=== PATIENT | female | born 1985 | race Caucasian/White ===

== ENCOUNTER 2017-05-07 17:20 | Inpatient (IN) | payer OTHER ==
[~2017-05-07] VITALS: Ht 160 cm; Wt 87.3 kg
[2017-05-07] MEDS ORDERED: LACTATED RINGER'S 1000ML 1,000 ML IV PRN (18:06)
[2017-05-07] MEDS ORDERED: CEFAZOLIN IV 2,000 MG in DEXTROSE 5% 50ML 50 ML IV ONE (18:15)
[2017-05-07 18:40] VITALS: Ht 160 cm; Wt 87.3 kg
[2017-05-07] MEDS: LACTATED RINGER'S 1000ML 1,000 ML IV SCH ×2 (18:42→23:28)
[2017-05-07] MEDS ORDERED: CEFAZOLIN IV 2,000 MG in DEXTROSE 5% 50ML 50 ML IV SCH (18:45)
[2017-05-07] MEDS ORDERED: PRENTAB26 PO (18:48)
[2017-05-07] MEDS ORDERED: PSEU30TA3 PO (18:48)
[2017-05-07] MEDS ORDERED: CEFAZOLIN IV 2,000 MG in SYRINGE 0 ML IV SCH (19:00)
[2017-05-07] MEDS ORDERED: CEFAZOLIN IV 2,000 MG in SYRINGE 0 ML IV ONE (19:00)
[2017-05-07 19:02] LABS: BASO % 0.1 %; BASO ABS # 0.01 K/uL (0-0.2); EOS % 0.5 %; EOS ABS # 0.05 K/uL (0-0.5); HEMATOCRIT 39.2 % (37-47); HEMOGLOBIN 12.9 g/dL (12.0-16.0); IG# 0.03 K/uL (0.00-0.02); LYMPH % 18.3 %; LYMPH ABS # 1.72 K/uL (1.2-3.4); MEAN CELL VOLUME 89.3 fL (80-100); MEAN CORPUSCULAR HEMOGLOBIN 29.4 pg (25-34); MEAN PLATELET VOLUME 10.5 fL (7.4-10.4); MONO % 10.3 %; MONO ABS # 0.97 K/uL (0.11-0.59); NEUT % 70.5 %; NEUT ABS # 6.63 K/uL (1.4-6.5); PLATELET COUNT 249 K/uL (130-400); WHITE BLOOD COUNT 9.41 K/uL (4.8-10.8)
[2017-05-07 19:03] LABS: MEAN CORPUSCULAR HGB CONC 32.9 g/dl (32-36)
[2017-05-07 19:06] LABS: ALBUMIN 2.2 gm/dl (3.4-5.0); ALT/SGPT 17 U/L (12-78); AST/SGOT 11 U/L (15-37); BLOOD UREA NITROGEN 5 mg/dl (7-18); CALCIUM 8.4 mg/dl (8.5-10.1); CARBON DIOXIDE 24 mmol/L (21-32); CREATININE 0.46 mg/dl (0.60-1.20); GLUCOSE 79 mg/dl (70-99); POTASSIUM 3.7 mmol/L (3.5-5.1); SODIUM 136 mmol/L (136-145)
[2017-05-07 19:09] LABS: ALKALINE PHOSPHATASE 218 U/L (45-117); TOTAL PROTEIN 6.7 gm/dl (6.4-8.2)
--- NOTE | 2017-05-07 19:09 | HISTORY & PHYSICAL EXAMINATION ---
DATE OF ADMISSION: 05/07/2017 LABOR AND DELIVERY ADMISSION NOTE CHIEF COMPLAINT: Leakage of fluid. HISTORY OF PRESENT ILLNESS: The patient is a 31-year-old G2, P1-0-0-1 at 39 weeks and 4 days of gestation who felt a gush of leakage of fluid at around 5:00 p.m. tonight, and she has been trickling a clear fluid since then. She states she feels irregular "twitching", not sure of the contractions. She denies vaginal bleeding. She reports good movements. She has a h/o prior C/ Section in 2007 for breech presentation. She has been planning for TOLCA/ but she scheduled a repeat for 05/09/2017 as a back up plan if she would not be in labor by then. Since she is ruptured spontaneoulsy she likes to attempt TOLCA/ . She is found to be grossly ruptured and being admitted for labor now. She understands the risks of TOLAC/ with uterine rupture, intra-abdominal bleeding, emergency , injury, hypoxia even , and hysterectomy. She understands all these risks and she likes to attempt TOLAC/ . Her has been uncomplicated except history of prior . She has had a head cold, URI for a week and a half with symptoms of stuffy nose and a cough She was using Sudafed for that. It got better over time. She feels mildly fever today and her temperature is found to be 99 Fahrenheit. She denies cough or sore throat. PAST MEDICAL HISTORY: As above. She denies any medical problems. PAST SURGICAL HISTORY: in 2007 and dental surgery in the past. MEDICATIONS: vitamins and she Sudafed 2 days ago. ALLERGIES: No known drug allergies. SOCIAL HISTORY: The patient denies smoking, alcohol or drug use. GYNECOLOGIC HISTORY: The patient denies any history of STDs including Chlamydia, gonorrhea, herpes. This is her second baby, she had full term primary for breech presentation in 2007. Baby was a viable female infant, 6 pounds 15 ounces. LABORATORY DATA: Her blood type is O positive, antibody screen negative, H&H was 40/14 and platelets 346. Rubella titer positive, RPR nonreactive, hepatitis B surface antigen negative. HIV nonreactive. GC chlamydia cultures were negative. Glucola was 157 mg/dL, 3-hour OGGT was normal except 1 level elevated at 103, fasting. Repeat H&H was 37/12 and her GBS culture was negative on 04/13/2017. PHYSICAL EXAMINATION: GENERAL: The patient is alert, oriented x3, not in acute distress. VITAL SIGNS: Temperature is 99 Fahrenheit, pulse 100, respirations 20, blood pressure is 137/81. HEENT: Her nostrils are pink dry. Her Oropharynx is pink, no erythema or exudate. Neck soft, NT, no lymph nodes felt. CARDIOVASCULAR SYSTEM: S1, S2, RRR. LUNGS: Clear to auscultation bilaterally. ABDOMEN: Soft, gravid, nontender. Rolf 8 pounds. EXTREMITIES: Nontender, no edema. PELVIC: She is grossly ruptured. Nitrazine positive. Her cervix is 1-2 cm, 50%, vertex, -3, posterior. She is grossly leaking clear fluid. heart rate 140s, reactive, good accelerations, no decelerations, moderate variability. [place] contractions every 5-6 minutes. ASSESSMENT AND PLAN: The patient is a 31-year-old G2, P1-0-0-1 at 39 weeks and 4 days of gestation with a history of prior section, plans to have TOLAC/. She presented with spontaneous rupture of membranes, remote from delivery, low grade temperature at 99 Fahrenheit, history of recent cold, upper respiratory tract infection, likely viral. Otherwise, her vital signs stable, heart rate reassuring, GBS negative. I have discussed the risks and benefits of repeat versus a TOLAC/. She understands is a major surgery including risks of bleeding, infection, injury to other organs, scarring, healing and she understands the TOLAC/ has a risk of uterine rupture and risk to the fetus and herself, as above. She understands that she is remote from delivery and if there is more risk for intra-amniotic infection if she has a prolonged/ long labor. If she desires TOLAC/, recommended augmentation with low dose Pitocin and antibiotics during labor. She understands this may increase the risk of uterine rupture All questions were answered. She will decide after she will think about this. [id number]
[2017-05-07 20:03] LABS: INFLUENZA B ANTIGEN Neg for Influ B (NEG)
[2017-05-07 20:50] LABS: INFLUENZA A PCR Neg for Influ A (NEG); INFLUENZA B PCR Neg for Influ B (NEG)
[2017-05-07] MEDS ORDERED: EpHEDrine SULFATE INJ 50 MG/ML AMP ONE (22:36)
[2017-05-07] MEDS ORDERED: BUPIVACAINE 0.25% 30 ML VIAL ONE (22:36)
[2017-05-07] MEDS ORDERED: FENTANYL 2MCG/ML ROPIV 1.25MG/ML 100ML BAG EPI ONE (22:36)
[2017-05-07] MEDS ORDERED: FENTANYL CITRATE INJ 50 MCG/1 ML 2 ML VIAL ONE (22:37)
[2017-05-07] MEDS ORDERED: NALOXONE HCL INJ 1 MG in SODIUM CHLORIDE 0.9% 1000ML 1,000 ML IV PRN (23:27)
[2017-05-07] MEDS ORDERED: LACTATED RINGER'S 1000ML 500 ML IV PRN ×2 (23:27→23:34)
[2017-05-07] MEDS ORDERED: FENTANYL 2MCG/ML ROPIV 1.25MG/ML 100ML BAG EPI PRN (23:30)
[2017-05-07] MEDS ORDERED: NALOXONE HCL INJ 0.4 MG/1 ML VIAL/CARP IV PRN (23:30)
[2017-05-07] MEDS ORDERED: NALBUPHINE HCL INJ 10 MG/ML 1ML AMP IV PRN (23:30)
[2017-05-07] MEDS ORDERED: DiphenhydrAMINE HCL 50 MG/ML VIAL IV PRN (23:30)
[2017-05-07] MEDS ORDERED: EpHEDrine SULFATE INJ 50 MG/ML AMP IV PRN (23:30)
[2017-05-07] MEDS ORDERED: ONDANSETRON INJ 2 MG/ML 2 ML VIAL IV PRN (23:30)
[2017-05-07] MEDS ORDERED: OXYTOCIN 30 UNITS/500ML NSS IV PRN (23:45)
[2017-05-08] VITALS (7 sets, daily range): BP systolic 115–128; BP diastolic 76–86; PULSE 97–114; TEMP 36.5–37; O2SAT 96–98
[2017-05-08] MEDS ORDERED: LACTATED RINGER'S 1000ML 1,000 ML IV SCH (03:02)
[2017-05-08] MEDS ORDERED: OXYTOCIN 30 UNITS/500ML NSS IV PRN (03:15)
[2017-05-08] MEDS ORDERED: HYDROCORTISONE ACETATE 25 MG SUPP PR PRN (03:15)
[2017-05-08] MEDS ORDERED: SUPERCREAM 0.870 % 15GM JAR EXT PRN (03:15)
[2017-05-08] MEDS ORDERED: LANOLIN OINT EXT PRN (03:15)
[2017-05-08] MEDS ORDERED: ACETAMINOPHEN 325 MG TAB PO PRN (03:15)
[2017-05-08] MEDS ORDERED: BENZOCAINE 20% AER SPR 82.5 GM CAN EXT PRN (03:15)
--- NOTE | 2017-05-08 03:32 | DELIVERY SUMMARY ---
DATE OF OPERATION: 05/08/2017 TIME OF DELIVERY OF BABY: 02:26 a.m. TIME OF DELIVERY OF PLACENTA: 02:47 a.m. TYPE OF DELIVERY: (Vaginal after Delivery) DETAILS OF DELIVERY: The patient is a 31-year-old G2, P1-0-0-2 at 39 weeks and 5 days of gestation who presented to labor and delivery on the evening of 05/07/2017 with spontaneous rupture of membranes. She was 1 cm dilated at admission. She had regular contractions and received epidural for pain. She progressed to full dilatation at 01:45 a.m. She felt pressure and wanted to push at 02:17 a.m. She pushed for about 10 minutes and delivered head over an intact perineum. Anterior shoulder, right shoulder was delivered with minimal traction and there was a piece of amniotic membranes around the neck and umbilical cord around the right shoulder as well as the around the trunk. Those were reduced while delivering the whole body and baby was handed off to the mother where mouth and nose were suctioned. Cord was clamped x2 and cut. Cord blood was obtained. It was a 3-vessel cord. Vagina and perineum were checked for lacerations. There were first degree labial lacerations on the inner medial sides of labia minora bilaterally and there was a small first degree laceration on the posterior vaginal wall. Labial lacerations were repaired with 3-0 Vicryl in a SH needle and the vaginal laceration was repaired with 2-[address]-1 needle. Excellent hemostasis was achieved. The placenta was found to be in the vagina delivered spontaneously intact and complete. Uterus was explored and found to be empty Fundus was firm and lower segment was cleared off all clots and debris. EBL was 200. The rest of the vagina and perineum were checked again and found to be intact. No other lacerations were found and lochia rubra was minimal. Placenta was examined to be intact. The membranes appeared to be missing/ not complete Those were around the baby's neck during delivery and they were also sent to pathology altogether with the placenta. Mom and baby tolerated the procedure well. Baby was a viable male , Apgars 8/9, weight 3715 grams. At the end of the procedure, instrument, needle and sponge count was correct x2. No complications happened and I was present during the whole procedure. I attest to the content of the Intraoperative Record and any orders documented therein. Any exceptions are noted below. MTDD
[2017-05-08] MEDS: IBUPROFEN 600 MG TAB PO PRN ×2 (05:11→16:08)
[2017-05-08] MEDS: FERROUS SULFATE 325 MG TAB PO SCH (08:20)
[2017-05-08] MEDS: DOCUSATE SODIUM 100 MG CAP PO SCH ×2 (08:21→20:20)
[2017-05-08] MEDS: PRENATAL VITAMIN TAB PO SCH (08:21)
--- NOTE | 2017-05-08 12:04 | Anesthesia Procedure Note ---
Anesthesia Epidural Removal Nt Date & Time May 08, 2017 at 12:03 Vital Signs Pain Intensity: 1.0 Vital Signs Past 12 Hours Date Time Temp Pulse Resp B/P (MAP) Pulse Ox O2 Delivery O2 Flow Rate FiO2 05/08/17 08:00 36.7 98 16 125/76 (92) 96 Room Air 05/08/17 07:40 Room Air 05/08/17 07:40 36.7 98 16 125/76 (92) 96 Room Air 05/08/17 05:30 37.0 114 20 126/79 (95) 98 Room Air 05/08/17 05:30 Room Air Notes Mental Status: alert / awake / arousable, participated in evaluation Nausea / Vomiting: adequately controlled Pain: adequately controlled Airway Patency, RR, SpO2: stable & adequate BP & HR: stable & adequate Hydration State: stable & adequate Neuraxial Anesthesia: was administered Anesthetic Complications: no major complications apparent, pt satisfied with anesthetic care Epidural: removed without complications, with tip intact
[2017-05-09 04:35] VITALS: BP 120/80; PULSE 99; TEMP 37
[2017-05-09 06:32] LABS: HEMATOCRIT 37.8 % (37-47); HEMOGLOBIN 12.4 g/dL (12.0-16.0)
[2017-05-09 07:47] VITALS: BP 119/82; PULSE 96; TEMP 36.4; O2SAT 97
[2017-05-09] MEDS: DOCUSATE SODIUM 100 MG CAP PO SCH (08:35)
[2017-05-09] MEDS: PRENATAL VITAMIN TAB PO SCH (08:35)
[2017-05-09] MEDS: FERROUS SULFATE 325 MG TAB PO SCH (08:35)
[2017-05-09] MEDS ORDERED: MEASLES, MUMPS & RUBELLA VIRUS VIAL SQ. ONE (09:00)
[2017-05-09] MEDS ORDERED: DIPHTHERIA/TETANUS/PERTUSSIS 0.5 ML SYR/VIAL IM. ONE (09:00)
--- NOTE | 2017-05-09 10:02 | OB/GYN Progress Note ---
STERILIZER MACHINE OPERATOR Progress Note Date of Service May 09, 2017. Subjective conversation w/ patient, conversation w/ family, physical exam Ambulation: ambulating normally Voiding: no voiding problems Passing Gas: Yes Diet Tolerance: Regular Diet Lochia: Small Feeding Type: Breast Feeding Objective Vital Signs Date Time Temp Pulse Resp B/P (MAP) Pulse Ox O2 Delivery O2 Flow Rate FiO2 05/09/17 07:47 36.4 96 15 119/82 (94) 97 Room Air 05/09/17 07:20 Room Air 05/09/17 04:35 37.0 99 18 120/80 (93) Room Air 05/08/17 23:45 37.0 100 16 128/84 (99) Room Air 05/08/17 23:45 Room Air 05/08/17 20:25 36.5 97 18 115/80 (92) Room Air 05/08/17 16:45 Room Air 05/08/17 15:20 36.5 100 20 128/85 (99) 96 Room Air 05/08/17 12:20 36.7 99 15 119/86 (97) 97 Room Air Physical Exam General Appearance: WELL-APPEARING, NO APPARENT DISTRESS Abdomen: non tender, soft Fundus: Firm Extremities: non-tender, normal inspection, no pedal edema Laboratory Results Last 24 Hours Test 05/09/17 06:17 Hemoglobin 12.4 g/dL Hematocrit 37.8 % Assessment and Plan Post- Day Number: 1 Continue Routine Care: discharged
[2017-05-09] MEDS ORDERED: MTR600X PO (10:03)
--- NOTE | 2017-05-09 10:05 | Discharge Instructions ---
Discharge Instructions Date of Service May 09, 2017. Admission Reason for Admission: Check Ruptured Membranes Discharge Discharge Diagnosis / Problem: term delivered Discharge Goals Goal(s): Routine recovery after delivery Activity Recommendations Activity Limitations: as noted below Lifting Limitations: no more than 10 pounds Exercise/Sports Limitations: gradually increase as tolerated May Resume Sexual Activity: after follow-up appointment Shower/Bathe: tomorrow Driving or Machine Use: resume 3 days after discharge . Instructions / Follow-Up Instructions / Follow-Up ACTIVITY RECOMMENDATIONS: * Gradual return to full activity over the next 2-3 weeks. * No lifting - nothing heavier than baby over the next 2-3 weeks. * Do not engage in vigorous exercise, sexual activity or sports until cleared by your physician. * Do not drive or operate any motorized equipment until cleared by your physician. * You may shower/bathe daily. BREAST CARE: If you are not breast feeding: * Wear a supportive bra 24 hours a day for one to two weeks. * Avoid stimulating your breasts and nipples as much as possible during the first few weeks after delivery. * When taking a shower, have the warm water hit your back, not breasts. * When your breasts feel full, apply ice packs. Usually three to four times a day helps ease the discomfort. * Take a mild pain medication (Tylenol/Motrin) when you are uncomfortable. If breast feeding: * Use breast milk to lubricate nipples. Lansinoh cream may be used for sore nipples. You do not need to remove cream prior to breast feeding. If using a different brand of cream, check the label for directions regarding removal of cream prior to nursing. * Wear a supportive bra. * If having problems with breasts or breast feeding, call a budget consultant or your health care provider. EPISIOTOMY CARE: After delivery, if you have an episiotomy (stitches), the following steps will ease discomfort and aid healing. * For the first 24 hours after delivery, place ice packs next to your episiotomy to help reduce swelling. * After the first 24 hour-period, sitz baths, either portable or in the tub, are suggested. A shower with a shower arm sprayed over the episiotomy may be comforting. * Leslye care should be done after each voiding and bowel movement. Squirt warm water from a plastic bottle over the perineum (region of the body between the anus and urinary opening) and pat dry. * Use Dermoplast to ease discomfort. Shake container. [address] directly over the episiotomy. * Place a Tucks on a clean sanitary pad next to your episiotomy. OVER THE COUNTER MEDICATION: * For discomfort or pain, you may use Acetaminophen (Tylenol), Ibuprofen (Advil ), or Naproxen (Aleve) following the package directions. * For constipation you may use Colace following the package directions. SPECIAL CARE INSTRUCTIONS: When you are discharged from the hospital, it is important for you to follow the instructions listed below: * During the first week at home, you should be able to care for yourself and your baby. In addition, the usual light household activities are encouraged. * Limit your activities to the way you feel. Do not try to clean the house or move furniture. Be sensible. * If you actively engage in sports and have done so up until the time of your delivery, you may resume these activities as soon as you feel able. This may take up to one month or even longer. Use good judgment. * Continue to take your vitamins for at least six weeks after the of your baby. * Your diet need not be limited unless you were on a special diet before your delivery. Breast-feeding mothers need around 2500 calories per day and at least 64-80 ounces of fluid per day (8 to 10 glasses). * You should eat foods from the four major food groups. Crash diets or fad diets are to be avoided. Eating lean meats, fresh fruits and vegetables, low-fat dairy products, high fiber foods and a regular exercise program, will help you get back to your pre- weight without putting your health at risk. * Constipation is sometimes a problem after delivery. Take a mild laxative as needed. If breast feeding, Milk of Magnesia is acceptable to use. You may use a suppository or Fleets enema if no episiotomy. * A daily shower or tub bath is suggested. Be sure to thoroughly and gently dry the perineum. * A bloody vaginal discharge will usually continue until around four weeks post . A small amount of bleeding may continue for as long as six weeks. Vaginal discharge changes from the bright red bleeding after delivery to pink then brownish and finally yellowish-pink before becoming white and disappearing. * Bleeding may increase with activity. Your first period may come in 4-8 weeks. If you are breast feeding, your period may be delayed even longer. * [place] (sex) can begin whenever both you and your partner feel comfortable and do not have any form of genital infection. It is recommended that you wait until after your return appointment and discuss with your physician. If you have questions, please talk to your health care practitioner. A condom should be used to prevent infection and . * Foreplay, gentle intercourse and lubrication is very important the first several times to prevent pain. A water-based lubricant such as K-Y jelly or Astroglide may be used. * Tampons may be used six weeks after delivery. * Douching should be avoided for 6 weeks after delivery. * If you have RH negative blood and your baby is RH positive, you will receive RHOGAM by injection prior to discharge. The nurse will give you a card to keep with you that has the date and place that you received RHOGAM after delivery. * During your care, you had a Rubella screen done to check for the presence of rubella antibodies in your blood. If your test was negative, you will receive a Rubella vaccine prior to discharge. This vaccine may cause a fever, soreness at the injection site and flu-like symptoms. If these symptoms persist, notify your health care practitioner. is not advised for three months after a Rubella vaccine. There is a higher chance of having a baby with defects if conceived within three months of getting the vaccine. * If you were discharged 24 hours from delivery or before 48 hours: Visiting nurses will come to your home 48 hours after discharge to assess you and your baby. The visiting nurse will meet with you while you are in the hospital to arrange a time and get directions to your home. * Verbalizes understanding of car seat law as reviewed with patient nursing. * Car Seat hand-out given and reviewed with patient by nursing. * Shaken baby information reviewed with patient by nursing. Call you doctor if: * Heavy bleeding (saturating several pads an hour) or passing clots the size of your fist. * A fever >101 degrees F (38.3 degrees C) on two occasions four hours apart and/or chills. * Unusual pain in the pelvic or vaginal areas. * "Baby Blues" lasting longer than two weeks. If you have any questions or concerns, call your health care practitioner at . FOLLOW-UP VISIT: * Please call the office at to schedule a 6 week examination. It is important you keep this appointment. * It is important for you to make arrangements for either yearly or twice yearly check-ups thereafter. Current Hospital Diet Patient's current hospital diet: Regular OB Diet Discharge Diet Recommended Diet: Regular OB Diet Pending Studies Studies pending at discharge: no Medical Emergencies . Who to Call and When: Medical Emergencies: If at any time you feel your situation is an emergency, please call 911 immediately. . Non-Emergent Contact Non-Emergency issues call your: Primary Care Provider . . "Provider Documentation" section prepared by Marquez Mckeon. . VTE Core Measure Inpt VTE Proph given/why not?: Treatment not indicated
[2017-05-09 13:05] VITALS: BP_DIAS 82; PULSE 96; TEMP 36.4
--- NOTE | 2017-05-09 13:05 | NUR ---
Discharge to home with and . Instructions provided, verbalized understanding. To front lobby via wheelchair with volunteer.
[2017-05-09] MEDS ORDERED: BISACODYL 5 MG TABEC PO SCH (20:00)
[2017-05-10] MEDS ORDERED: BISACODYL 10 MG SUPP PR PRN (07:00)
== END 2017-05-09 13:05 | disposition home or self-care (01) | DRG 775 ==
LOC: C.LD 17:20 → C.OPB 17:20 → C.LD 18:08 → C.OBG 05-08 05:21
PROVIDERS: ADMIT Obstetrics & Gynecology; ATTEND Obstetrics & Gynecology
PROC: 10E0XZZ Delivery of Products of Conception, External Approach (ICD-10-PCS; principal; 2017-05-08)
PROC: 0HQ9XZZ Repair Perineum Skin, External Approach (ICD-10-PCS; principal; 2017-05-08)
DX: O70.0 First degree perineal laceration during delivery (principal); Z37.0 Single live birth; Z3A.39 39 weeks gestation of pregnancy